=== PATIENT | male | born 1960 | race Caucasian/White ===

== ENCOUNTER 2019-06-22 13:15 | Emergency (ER) | payer BC ==
[2019-06-22] MEDS ORDERED: 0.9 % SODIUM CHLORIDE 1,000 ML BAG IV ONE (13:39)
[2019-06-22] MEDS ORDERED: ONDANSETRON HCL IV 4 MG/2 ML VIAL IV ONE (13:39)
[2019-06-22] MEDS ORDERED: ACETAMINOPHEN 1,000 MG/100 ML BTL IVPB ONE (13:40)
--- NOTE | 2019-06-22 13:45 | Emergency Department Record ---
History of Present Illness - General Chief Complaint: Headache Migraine Stated Complaint: MIGRAINE Time Seen by Provider: 06/22/19 13:31 Source: Patient Mode of Arrival: Ambulatory Limitations: No limitations - History of Present Illness Initial Comments: The patient is here due to the acute onset of a GUTIERREZ yesterday just over 24 hours ago. He woke up and was feeling normal then noticed a sharp stabbing pain mainly over the back of the head. The pain has waxed and waned since the onset and is associated with mild nausea. There has been no vomiting, confusion, visual changes, balance issues, neck pain or fevers. The patient has no hx of similar GUTIERREZ's and does have a hx of mild HTN but is on no medicines for it. MD Complaint: Headache Onset/Timin -: Hour(s) Onset Description: Sudden Location: Occipital Severity: Moderate Severity scale (1-10): 10 Quality: Aching Consistency: Constant, Intermittent Improves With: Nothing Worsens With: Movement of head/neck, Sitting/standing Treatments Prior to Arrival: Acetaminophen, Ibuprofen - Symptoms of Stroke Onset of Symptoms Date: 06/21/19 - Related Data Home Medications Medication Instructions Recorded Confirmed Last Taken Ergocalciferol (Vitamin D2) 50,000 unit PO WEEKLY 06/22/19 06/22/19 1 Day Ago [Vitamin D2] ~06/21/19 Fenofibrate Nanocrystallized 145 mg PO QHS 06/22/19 06/22/19 1 Day Ago [Fenofibrate] ~06/21/19 Montelukast Sodium [Singulair] 10 mg PO DAILY PRN 06/22/19 06/22/19 Unknown Multivitamin [Multiple Vitamins] 1 each PO DAILY 06/22/19 06/22/19 1 Day Ago ~06/21/19 Pantoprazole Sodium [Protonix] 40 mg PO BID 06/22/19 06/22/19 1 Day Ago ~06/21/19 Previous Rx's Medication Instructions Recorded Naproxen [Naprosyn] 500 mg PO BID #14 tablet. 06/22/19 Allergies Allergy/AdvReac Type Severity Reaction Status Date / Time iodine Allergy PT UNSURE Verified 06/22/19 13:27 OF REACTION Travel Screening - Travel/Exposure Within Last 30 Days Have you traveled within the last 30 days?: No - Travel/Exposure Within Last Year Have you traveled outside the [place] in the last year?: No - Additonal Travel Details Have you been exposed to anyone with a communicable illness?: No - Travel Symptoms Symptom Screening: None Review of Systems Constitutional: Denies: Chills, Fever Eyes: Denies: Eye discharge ENT: Denies: Congestion Respiratory: Denies: Cough, Dyspnea Cardiovascular: Denies: Chest pain Endocrine: Denies: Fatigue Gastrointestinal: Reports: Nausea Genitourinary: Denies: Dysuria Musculoskeletal: Denies: Arthralgia Skin: Denies: Bruising Past Medical History - SOCIAL HISTORY Smoking Status: Never smoker Alcohol Use: Rare Drug Use: None - RESPIRATORY Hx Respiratory Disorders: No - CARDIOVASCULAR Hx Cardio Disorders: Yes Hx Hypertension: Yes Comment:: elevated cholesterol - NEURO Hx Neuro Disorders: Yes Hx Headaches: Yes (not in long time) - GI Hx GI Disorders: Yes Hx Diverticulitis: Yes Hx Reflux: Yes - Hx Genitourinary Disorders: Yes Hx Kidney Stones: Yes - ENDOCRINE Hx Endocrine Disorders: No Hx Diabetes: No Hx Thyroid Disease: No - MUSCULOSKELETAL Hx Musculoskeletal Disorders: Yes Comment:: spinal fusions - PSYCH Hx Psych Problems: No - HEMATOLOGY/ONCOLOGY Hx Hematology/Oncology Disorders: No Family Medical History Any Significant Family History?: Yes Hx Cancer: Father Hx Diabetes: Mother Physical Exam - General General Appearance: Alert, Oriented x3, Cooperative, No acute distress - Head Head exam: Atraumatic, Normocephalic, Normal inspection - Eye Eye exam: Normal appearance, PERRL, EOMI. negative: Conjunctival injection - ENT Throat exam: Normal inspection. negative: Tonsillar erythema, Tonsillar exudate - Neck Neck exam: Normal inspection, Full ROM. negative: Meningismus (The neck is very supple.), Tenderness - Respiratory Respiratory exam: Normal lung sounds bilaterally. negative: Respiratory distress - Cardiovascular Cardiovascular Exam: Regular rate, Normal rhythm, Normal heart sounds - GI/Abdominal GI/Abdominal exam: Soft, Normal bowel sounds. negative: Tenderness - Extremities Extremities exam: Normal inspection, Full ROM, Normal capillary refill. negative: Tenderness - Back Back exam: Reports: Normal inspection - Neurological Neurological exam: Alert, Normal gait, Oriented X3. negative: Abnormal gait, Altered, Motor sensory deficit - Psychiatric Psychiatric exam: negative: Anxious Course Vital Signs 06/22/19 13:17 Temperature 98.4 F Pulse Rate 76 Respiratory 18 Rate Blood Pressure 208/119 Pulse Ox 98 - Reevaluation(s) Reevaluation #1: The patient is doing a lot better at this time. His GUTIERREZ is significantly improved but not gone. I did discuss the neg head CT with him and his . 06/22/19 14:23 Reevaluation #2: The patient is doing better but still is having a significant GUTIERREZ. I did discuss the need for further testing to R/O SAH due to the new onset of the acute GUTIERREZ. I did offer to perform an LP on the patient but he is refusing that due to the fact he has had a lumbar spinal fusion. I then did then recommend a head and neck CTA and the patient did agree to that test. The patient has had a hx of a minor iodine reaction in the past with a GI contrast CT exam and did receive Solumedrol and Benadryl. I then did explain that we can pretreat the patient but he due to the need to receive the iodine he could have a worse reaction and could have an anaphylactic reaction. The patient understands and accepts the risks and would like to go ahead with the test. I also offered to transfer the patient to another facility for an MRI/MRA but he would like to stay here for the CT exam. 06/22/19 15:20 Reevaluation #3: The patient is doing much better at this time. His GUTIERREZ has now resolved and he is resting comfortably with no pain or discomfort. I did discus his head and neck CTA and did discuss the fact there was no significant intracranial abnormality on it. He is to F/U with his PCP this week for recheck and to have the thyroid evaluated further based on the CT results. The patient was given the report of the head and neck CT. 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 Because of that I did discuss the case with Dr. Adrian and he did recommend an LP to distinguish if the aneurysm was the cause of the pain due to intermittent bleeding. I did discuss this with the patient and he is reluctant to do the LP due to the hx of his spinal fusion and is also concerned about his aneurysm. I then did call Dr. Adrian back and he said in that case just have the patient transferred to [facility] and he will consult and have the aneurysm possible coiled tomorrow. I then did call and discuss the case with Dr. Oneal and he does accept the patient to the Neuro ICU for admission and further workup. 06/22/19 18:04 Medical Decision Making - Data Complexity MDM Data: Labs Ordered and/or Reviewed, X-Ray Ordered and/or Reviewed - Lab Data Result diagrams: 06/22/19 13:40 06/22/19 13:40 - Radiology Data Radiology results: Report reviewed (Head CT: Neg. Head and neck CTA: Neg for aneurysm or any acute intracranial abnormality. Non emergent thyroid US recommended. 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.) Disposition Disposition: Transfer Clinical Impression: Headache Qualifiers: Headache type: unspecified Headache chronicity pattern: acute headache Intractability: not intractable Qualified Code(s): R51 - Headache Disposition: Acute Care Hospital Transfer Transfer To: [facility] Reason For Transfer: Neurosurgy Accepting Physician: Jm Time Discussed w/Accepting Physician: 18:08 Condition: (2) Stable Instructions: Acute Headache (ED) Prescriptions: Naproxen [Naprosyn] 500 mg PO BID #14 tablet.dr Forms: Patient Portal Access Time of Disposition: 16:51 Quality - Quality Measures Quality Measures: N/A - Blood Pressure Screening View Details: Yes Does Patient Have Any of the Following: No Blood Pressure Classification: Hypertensive Reading Systolic Measurement: 208 Diastolic Measurement: 119 Screening for High Blood Pressure: < First Hypertensive BP, F/U Documented > [G8950] First Hypertensive Follow-up Interventions: Referral to alternative/primary care provider.
[2019-06-22 13:53] LABS: ABSOLUTE NEUTROPHIL COUNT 9.44; BASO % 0.2 % (0-6); EOS % 1.4 % (0-6); GRAN % 77.8 % (47-80); HEMATOCRIT 48.5 % (42.0-52.0); HEMOGLOBIN 16.4 gm/dl (14.0-18.0); LYMPH % 14.6 % (16-45); MEAN CELL VOLUME 85.2 fl (81-97); MEAN CORPUSCULAR HEMOGLOBIN 28.8 pg (27-33); MEAN CORPUSCULAR HGB CONC 33.8 g/dl (32-36); PLATELET COUNT 234 K/uL (130-400); RED BLOOD COUNT 5.69 M/uL (4.40-5.70); RED CELL DISTRIBUTION WIDTH 13.9 % (11.5-14.5); WHITE BLOOD COUNT W/O DIFF 12.1 K/uL (4.2-12.2)
[2019-06-22 14:02] LABS: INR 1.1; PARTIAL THROMBOPLASTIN TIME 28.7 SECONDS (24.5-39.1); PROTHROMBIN TIME (PATIENT) 11.4 SECONDS (9.5-12.1)
--- NOTE | 2019-06-22 14:07 | CT SCAN REPORT ---
EXAMINATION: HEAD WO CONTRAST EXAM DATE: 06/22/2019 2:01 PM TECHNIQUE: Noncontrast axial images were obtained to the brain. INDICATION: acute GUTIERREZ COMPARISON: None. ENCOUNTER: Not applicable HAND DOMINANCE: Unknown FINDINGS: The brain parenchyma is unremarkable for age. No loss of sharma-white matter differentiation or sulcal effacement to indicate acute infarction. No evidence of intracranial mass. The ventricles, sulci, and subarachnoid spaces are unremarkable for age. The basal cisterns are paten t and there is no midline shift or herniation. No intra-axial or extra-axial fluid collection. No evidence of intracranial hemorrhage. Small air-fluid level demonstrated in left sphenoid sinus. The paranasal sinuses, mastoid air cells, and orbits are otherwise unremarkable. The calvarium is intact. IMPRESSION: 1. No CT evidence of intracranial hemorrhage or acute intracranial abnormality. 2. Small air-fluid level in the left sphenoid sinus. Correlate for acute sinusitis Dictated by: MATTHEW DORMAN MD on 06/22/2019 2:03 PM. .
[2019-06-22] MEDS ORDERED: DIPHENHYDRAMINE HCL 50 MG/ML VIAL IVP ONE ×2 (14:22→15:01)
[2019-06-22] MEDS ORDERED: METOCLOPRAMIDE HCL 10 MG/2 ML VIAL IVP ONE (14:22)
[2019-06-22 14:27] LABS: BLOOD UREA NITROGEN 13 mg/dL (6-20); EST GLOMERULAR FILTRATION RATE > 60 mL/min; TOTAL PROTEIN 7.6 g/dL (6.6-8.7)
[2019-06-22 14:29] LABS: GLUCOSE,RANDOM 93 mg/dL (74-109)
[2019-06-22 14:32] LABS: ALBUMIN 4.9 g/dL (4.0-5.0); ALKALINE PHOSPHATASE 64 U/L (40-129); ALT/SGPT 20 U/L (<41); AST/SGOT 19 U/L (10.0-50.0)
[2019-06-22 14:34] LABS: BILIRUBIN,DIRECT < 0.2 mg/dL (0-0.3)
[2019-06-22] MEDS ORDERED: METHYLPREDNISOLONE PF 125MG/VIAL IVP ONE (15:01)
[2019-06-22] MEDS ORDERED: HYDROMORPHONE HCL 2 MG/ML VIAL IVP ONE (15:19)
--- NOTE | 2019-06-22 16:42 | CT ANGIOGRAM REPORT ---
EXAMINATION: CT ANGIOGRAM OF THE HEAD WITH CONTRAST, CT ANGIOGRAM OF THE NECK WITH CONTRAST EXAM DATE: 06/22/2019 3:59 PM TECHNIQUE: Arterial phase thin-slice spiral images were obtained during rapid infusion of intravenou s contrast from the aortic arch through the brain. Multiplanar 2-D reformats were performed. For be tter evaluation of vessel anatomy and pathology, post-processing was done to include MIP reconstructi ons. IV Contrast: The type and amount of contrast is recorded in the medical record. PQRI Documentation : All internal carotid artery stenosis were calculated using the distal internal c arotid artery diameter as the denominator (NASCET criteria) INDICATION: Acute GUTIERREZ. COMPARISON: CT the head without contrast 06/22/2019. FINDINGS: CT angiogram head: Right internal carotid artery: Unremarkable. Left internal carotid artery: Unremarkable. Right DEREK: Unremarkable Right MCA: Unremarkable. Right MET[employer] SALES REPRESENTATIVE: circulation anatomy, arising from the posterior communicating artery. Otherwise unr emarkable. Left DEREK: Unremarkable Left MCA: Unremarkable. Left MET[employer] SALES REPRESENTATIVE: circulation anatomy, arising from the posterior communicating artery. Otherwise unrem arkable. Right vertebral artery: Unremarkable. Left vertebral artery: Unremarkable. Basilar artery: Unremarkable. No evidence of vascular malformation. The dural sinuses are patent. CT angiogram neck: Normal three-vessel left-sided aortic arch.. The proximal subclavian arteries are unremarkable Right common carotid artery: Unremarkable. Right internal carotid artery: Tortuous but without stenosis Left common carotid artery: Unremarkable. Left internal carotid artery: Tortuous but without stenosis Right vertebral artery: Unremarkable. Left vertebral artery: Unremarkable. No evidence of carotid or vertebral artery dissection. Enlarged bilateral thyroid gland with suspected poorly visualized nodules IMPRESSION: 1. No large vessel occlusion. 2. Enlarged bilateral thyroid gland with suspected poorly-visualized nodules. Nonemergent thyroid ul trasound and correlation with thyroid function is advised 3. Otherwise unremarkable CT angiogram of the head and neck. - No evidence of significant intracranial aneurysm or stenosis. No evidence of venous thrombosis - No significant arterial stenosis within the neck using the NASCET criteria. - No evidence of arterial dissection. NOTE: There is a follow-up recommendation in this report. Dictated by: MATTHEW DORMAN MD on 06/22/2019 4:34 PM. .
== END 2019-06-22 18:51 | disposition short-term general hospital (02) ==
LOC: ER 13:15
DX: I72.6 Aneurysm of vertebral artery (principal); R51 Headache; R11.0 Nausea; I10 Essential (primary) hypertension
CPT/HCPCS: 70450; 70496; 70498; 80048; 80076; 85025; 85610; 85730; 96365; 96375; 96376; 99285; J1200; J2405; J2765; J2930; J7030